=== PATIENT | male | born 1965 | race Caucasian/White ===

== ENCOUNTER 2018-07-09 20:46 | Emergency (ER) | payer OTHER ==
--- NOTE | 2018-07-09 20:48 | ER Report ---
History and Physical Time Seen By MD: 20:47 HPI/ROS CHIEF COMPLAINT: Left flank pain HISTORY OF PRESENT ILLNESS: 53-year-old male type II diabetic with hypertension presents ambulatory to the ER complaining of onset of left flank pain with milan ral episodes of vomiting this morning at 9 AM. Patient does have a distant history of a kidney stone 6 years ago, which required surgery to remove. Patient notes fevers and chills. He has a low-grade fever on arrival 99.6. He notes some urgency. He denies diarrhea. REVIEW OF SYSTEMS: Respiratory: No cough, no dyspnea. Cardiovascular: No chest pain, no palpitations. Gastrointestinal: As above Musculoskeletal: As above Allergies: Coded Allergies: oseltamivir (Verified Allergy, Unknown, "TIA", 07/09/18) acetaminophen (Verified Adverse Reaction, Unknown, "GOT REAL SICK", 07/09/18) aspirin (Verified Adverse Reaction, Unknown, "GOT REAL SICK", 07/09/18) diphenhydramine (Verified Adverse Reaction, Unknown, "GOT REAL SICK", 07/09/18) oxycodone (Verified Adverse Reaction, Unknown, "GOT REAL SICK", 07/09/18) phenyltoloxamine (Verified Adverse Reaction, Unknown, "GOT REAL SICK", 07/09/18) Home Meds Active Scripts Tamsulosin Hcl (FLOMAX) 0.4 Mg Cap.er.24h, 0.4 MG PO QHS for ureteral relaxation, #14 CAP Prov:MACK MCKENZIE DO 07/09/18 Ondansetron 4 Mg Odt (ONDANSETRON 4 MG ODT) 4 Mg Tab.rapdis, 4 MG PO Q6H PRN for NAUSEA/VOMITING, #15 TAB Prov:MACK MCKENZIE DO 07/09/18 Hydrocodone Bit/Acetaminophen (HYDROCODON-ACETAMINOPHEN 5-325) 1 Each Tablet, 1- 2 EACH PO Q4-6H PRN for PAIN, #15 TAKE ONE TABLET BY MOUTH EVERY 4-6 HOURS NEEDED FOR PAIN Prov:MACK MCKENZIE DO 07/09/18 Reported Medications Lisinopril (LISINOPRIL) 20 Mg Tablet, 20 MG PO QDAY, TAB 07/09/18 Reviewed Nurses Notes: Yes Old Medical Records Reviewed: Yes Constitutional Vital Sign - Last 24 Hours 07/09/18 07/09/18 07/09/1819 20:49 20:49 21:00 21:01 Temp 99.6 Pulse 104 85 Resp 14 B/P (MAP) 173/91 173/91 (118) 158/86 (110) Pulse Ox 91 95 O2 Delivery Room Air 07/09/18 07/09/18 07/09/18 07/09/18 21:16 21:30 21:31 22:00 Pulse 91 83 B/P (MAP) 146/91 (109) 91/73 (79) Pulse Ox 91 93 07/09/18 07/09/18 07/09/18 07/09/18 22:01 22:06 22:21 22:30 Pulse 75 82 66 B/P (MAP) 169/93 (118) Pulse Ox 89 90 85 07/09/18 22:36 Pulse 71 Pulse Ox 90 Intake and Output 07/09/18 07/09/18 07/10/18 15:00 23:00 07:00 Intake Total 1000 ml Balance 1000 ml Physical Exam General Appearance: The patient is alert, has no immediate need for airway protection and no current signs of toxicity. Vital signs stable, temp 99.6, pulse ox normal, slightly pale appearing, skin warm and dry Eyes: Pupils equal and round no injection. Respiratory: Chest is non tender, lungs are clear to auscultation. Cardiac: regular rate and rhythm Gastrointestinal: Abdomen is soft and non tender, no masses, bowel sounds normal. +Left CVA tenderness Musculoskeletal: Neck: Neck is supple and non tender. Extremities have full range of motion and are non tender. Skin: No rashes or lesions. DIFFERENTIAL DIAGNOSIS: After history and physical exam differential diagnosis was considered for flank pain including but not limited to musculoskeletal causes, kidney stone, pyelonephritis, shingles, and intra-abdominal causes such as diverticulitis and appendicitis. Medical Decision Making Data Points Result Diagram: 07/09/18211107/09/182111 Laboratory Hematology Test 07/09/18 21:12 Red Blood Count 4.85 M/uL (4.00-5.60) Mean Corpuscular Volume 91.1 fL (80.0-96.0) Mean Corpuscular Hemoglobin 31.4 pg (26.0-33.0) Mean Corpuscular Hemoglobin Concent 34.5 g/dL (32.0-36.0) Red Cell Distribution Width 13.6 % (11.5-14.5) Mean Platelet Volume 8.6 fL (7.2-11.1) Neutrophils (%) (Auto) 78.8 % (39.4-72.5) Lymphocytes (%) (Auto) 12.7 % (17.6-49.6) Monocytes (%) (Auto) 6.3 % (4.1-12.4) Eosinophils (%) (Auto) 0.6 % (0.4-6.7) Basophils (%) (Auto) 1.6 % (0.3-1.4) Nucleated RBC Relative Count (auto) 0.0 /100WBC Neutrophils # (Auto) 8.2 K/uL (2.0-7.4) Lymphocytes # (Auto) 1.3 K/uL (1.3-3.6) Monocytes # (Auto) 0.7 K/uL (0.3-1.0) Eosinophils # (Auto) 0.1 K/uL (0.0-0.5) Basophils # (Auto) 0.2 K/uL (0.0-0.1) Nucleated RBC Absolute Count (auto) 0.00 K/uL Peripheral Blood Smear Yes Y/N Sodium Level 140 mmol/L (137-145) Potassium Level 3.9 mmol/L (3.5-5.0) Chloride Level 107 mmol/L (98-107) Carbon Dioxide Level 24 mmol/L (22-30) Blood Urea Nitrogen 17 mg/dl (9-21) Creatinine 1.30 mg/dl (0.66-1.25) Glomerular Filtration Rate Calc 57.3 Random Glucose 174 mg/dl (75-110) Calcium Level 9.2 mg/dl (8.4-10.2) Total Bilirubin 0.4 mg/dl (0.2-1.3) Aspartate Amino Transf (AST/SGOT) 20 U/L (0-35) Alanine Aminotransferase (ALT/SGPT) 34 U/L (0-56) Alkaline Phosphatase 69 U/L (0-126) Total Protein 7.0 g/dl (6.3-8.2) Albumin 3.8 g/dl (3.5-5.0) Amylase Level 65 U/L (0-110) Lipase 69 U/L (23-300) Chemistry Test 07/09/18 21:12 White Blood Count 10.4 k/uL (4.5-11.0) Red Blood Count 4.85 M/uL (4.00-5.60) Hemoglobin 15.2 g/dL (14.0-18.0) Hematocrit 44.2 % (42.0-52.0) Mean Corpuscular Volume 91.1 fL (80.0-96.0) Mean Corpuscular Hemoglobin 31.4 pg (26.0-33.0) Mean Corpuscular Hemoglobin Concent 34.5 g/dL (32.0-36.0) Red Cell Distribution Width 13.6 % (11.5-14.5) Platelet Count 175 K/uL (150-450) Mean Platelet Volume 8.6 fL (7.2-11.1) Neutrophils (%) (Auto) 78.8 % (39.4-72.5) Lymphocytes (%) (Auto) 12.7 % (17.6-49.6) Monocytes (%) (Auto) 6.3 % (4.1-12.4) Eosinophils (%) (Auto) 0.6 % (0.4-6.7) Basophils (%) (Auto) 1.6 % (0.3-1.4) Nucleated RBC Relative Count (auto) 0.0 /100WBC Neutrophils # (Auto) 8.2 K/uL (2.0-7.4) Lymphocytes # (Auto) 1.3 K/uL (1.3-3.6) Monocytes # (Auto) 0.7 K/uL (0.3-1.0) Eosinophils # (Auto) 0.1 K/uL (0.0-0.5) Basophils # (Auto) 0.2 K/uL (0.0-0.1) Nucleated RBC Absolute Count (auto) 0.00 K/uL Peripheral Blood Smear Yes Y/N Glomerular Filtration Rate Calc 57.3 Calcium Level 9.2 mg/dl (8.4-10.2) Total Bilirubin 0.4 mg/dl (0.2-1.3) Aspartate Amino Transf (AST/SGOT) 20 U/L (0-35) Alanine Aminotransferase (ALT/SGPT) 34 U/L (0-56) Alkaline Phosphatase 69 U/L (0-126) Total Protein 7.0 g/dl (6.3-8.2) Albumin 3.8 g/dl (3.5-5.0) Amylase Level 65 U/L (0-110) Lipase 69 U/L (23-300) EKG/Imaging Imaging Results: CT scan of the abdomen and pelvis without contrast was obtained. The results of the study are CT of the abdomen and pelvis without contrast: Indication: Left flank pain. History of nephrolithiasis. Technique: Helical CT was performed through the abdomen and pelvis without contrast. Multiplanar reconstructions are reviewed. One of the following dose optimization techniques was utilized in the performance of this exam: Automated exposure control; adjustment of the mA and/or kV according to the patient's size; or use of an iterative reconstruction technique. Specific details can be referenced in the facility's radiology CT exam operational policy. Comparison: None available. Lower lung [place]: No parenchymal or pleural abnormality is identified. Liver: Normal in size, shape, and density. Gallbladder/biliary tree: Unremarkable, as visualized. Pancreas: Normal in size, shape, and density. Spleen: Normal in size, shape, and density. Adrenal glands: Within normal limits. Kidneys/urinary bladder: There is an obstructing calculus in the proximal left ureter, measuring 6 x 4 mm in size. There is mild/moderate dilatation of the proximal left ureter and intrarenal collecting structures. The left kidney is edematous with minimal perinephric fluid. There is a large simple cyst in the posterior cortex of the left kidney, measuring up to 6.6 cm in size. No additional calculi are observed in the left ureter or kidney. There is a tiny nonobstructing calculus at the lower pole of the right kidney. The right kidney is otherwise unremarkable. There are no signs of right ureteral calculus or obstruction. The bladder appears homogeneous and unremarkable. Intestinal structures: Unremarkable, as visualized. There are no signs of obstruction or focal inflammatory changes. The appendix appears normal. Pelvis: Unremarkable. Aorta and vascular structures: Within normal limits. Ascites or fluid collections: None seen. Skeletal structures: There is mild/moderate degenerative disc disease and osteophyte formation in the lower thoracic spine and lumbar spine. No acute skeletal deformity is identified. Impression: There is an obstructing calculus in the proximal left ureter, measuring 6 x 4 mm. The study was read by the radiologist. I viewed the images myself on the PACS system. ED Course/Re-evaluation Clinical Indication for ER IV: Hydration, IV Access ED Course Patient was admitted to an examination room. H&P was done. The differential diagnoses was considered. Patient with left flank pain and urinary urgency. He also feels constipated. He does have a history of a kidney stone which required surgical removal 6 years ago. She feels like he has another stone. Peripheral IV was established. Diagnostic studies were sent off. Patient was sent for a CT scan without contrast of the abdomen and pelvis which confirms a 4 x 6 mm stone with left hydronephrosis. There also is a large 6.6 cm simple cyst noted on the left kidney. Patient was treated with IV Zofran, Dilaudid and Toradol. He is feeling much better. Patient will be discharged on Lortab, Zofran and Flomax. He is also going to take Aleve 2 tablets twice daily for pain relief. He is given information to follow up with urology. He is cautioned return to [facility] ER for any worsening. Decision to Disposition Date: Jul 09, 2018 Decision to Disposition Time: 22:29 Depart Departure Latest Vital Signs Vital Signs Date Time Temp Pulse Resp B/P (MAP) Pulse Ox O2 Delivery O2 Flow Rate FiO2 07/09/18 22:36 71 90 07/09/18 22:30 169/93 (118) 07/09/18 20:49 99.6 14 Room Air Impression: Primary Impression: Renal colic on left side Additional Impression: History of kidney stones Condition: Improved Disposition: HOME OR SELF-CARE Referrals: DAILY JURADO MD SUNSHINE VAZQUEZ MD [facility] Tamsulosin Hcl (FLOMAX) 0.4 Mg Cap.er.24h 0.4 MG PO QHS for ureteral relaxation, #14 CAP Prov: MACK MCKENZIE DO 07/09/18 Ondansetron 4 Mg Odt (ONDANSETRON 4 MG ODT) 4 Mg Tab.rapdis 4 MG PO Q6H PRN for NAUSEA/VOMITING, #15 TAB Prov: MACK MCKENZIE DO 07/09/18 Hydrocodone Bit/Acetaminophen (HYDROCODON-ACETAMINOPHEN 5-325) 1 Each Tablet 1-2 EACH PO Q4-6H PRN for PAIN, #15 TAKE ONE TABLET BY MOUTH EVERY 4-6 HOURS NEEDED FOR PAIN Prov: MACK MCKENZIE DO 07/09/18 Patient Instructions: Kidney Stones (ED) Additional Instructions: Take Aleve 2 tablets twice daily with food Return to the ER for any worsening Follow-up with urology in 2-3 days if unimproved Problem Qualifiers MACK MCKENZIE DO Jul 09, 2018 20:48
[2018-07-09] MEDS ORDERED: LISI20TA29 PO (20:54)
[2018-07-09] MEDS ORDERED: NS(*) 0.9% 1000 ML BAG 1,000 ML IV ONE (20:56)
[2018-07-09] MEDS ORDERED: ONDANSETRON 4 MG/2 ML VIAL IVP ONE (21:00)
[2018-07-09] MEDS ORDERED: HYDROMORPHONE HCL 1 MG/ML SYRINGE IVP ONE (21:00)
[2018-07-09 21:19] LABS: PLATELET COUNT, AUTOMATED 175 K/uL (150-450)
[2018-07-09] MEDS ORDERED: KETOROLAC 30 MG/ML VIAL IVP ONE (21:30)
--- NOTE | 2018-07-09 22:22 | RADIOLOGY IMAGING REPORT ---
FACILITY: [facility] PATIENT NAME: Tae Shankar : 1965 MR: [id number] V: [id number] EXAM DATE: ORDERING PHYSICIAN: MACK MCKENZIE TECHNOLOGIST: Location: [facility] [place] Patient: Tae Shankar : 1965 Visit/Account:[id number] Date of Sevice: 07/09/2018 CT of the abdomen and pelvis without contrast: Indication: Left flank pain. History of nephrolithiasis. Technique: Helical CT was performed through the abdomen and pelvis without contrast. Multiplanar rec onstructions are reviewed. One of the following dose optimization techniques was utilized in the performance of this exam: Autom ated exposure control; adjustment of the mA and/or kV according to the patient's size; or use of an i terative reconstruction technique. Specific details can be referenced in the facility's radiology CT exam operational policy. Comparison: None available. Lower lung [place]: No parenchymal or pleural abnormality is identified. Liver: Normal in size, shape, and density. Gallbladder/biliary tree: Unremarkable, as visualized. Pancreas: Normal in size, shape, and density. Spleen: Normal in size, shape, and density. Adrenal glands: Within normal limits. Kidneys/urinary bladder: There is an obstructing calculus in the proximal left ureter, measuring 6 x 4 mm in size. There is mild/moderate dilatation of the proximal left ureter and intrarenal collecting structures. The left kidney is edematous with minimal perinephric fluid. There is a large simple cys t in the posterior cortex of the left kidney, measuring up to 6.6 cm in size. No additional calculi a re observed in the left ureter or kidney. There is a tiny nonobstructing calculus at the lower pole of the right kidney. The right kidney is ot herwise unremarkable. There are no signs of right ureteral calculus or obstruction. The bladder appears homogeneous and unremarkable. Intestinal structures: Unremarkable, as visualized. There are no signs of obstruction or focal inflam matory changes. The appendix appears normal. Pelvis: Unremarkable. Aorta and vascular structures: Within normal limits. Ascites or fluid collections: None seen. Skeletal structures: There is mild/moderate degenerative disc disease and osteophyte formation in the lower thoracic spine and lumbar spine. No acute skeletal deformity is identified. Impression: There is an obstructing calculus in the proximal left ureter, measuring 6 x 4 mm. Report Dictated By: Samuel Manuel MD at 07/09/2018 10:02 PM Report E-Signed By: Samuel Manuel MD at 07/09/2018 10:17 PM [id number]
[2018-07-09 22:30] VITALS: BP 169/93
[2018-07-09] MEDS ORDERED: LOR5/325 PO (22:31)
[2018-07-09] MEDS ORDERED: TAMS0.4C25 PO (22:31)
[2018-07-09] MEDS ORDERED: ONDA4TAB9 PO (22:31)
[2018-07-09] MEDS ORDERED: ONDANSETRON 4 MG ODT TH SL ONE (22:35)
[2018-07-09] MEDS ORDERED: ACET/HYDROC 5/325MG TH ER ONLY 2 TAB/BOTTLE PO ONE ×2 (22:35)
[2018-07-09] MEDS ORDERED: TAMSULOSIN HCL 0.4 MG CAP PO ONE (22:35)
== END 2018-07-09 22:52 | disposition home or self-care (01) ==
LOC: ER 21:06
DX: N20.0 Calculus of kidney (principal); Z87.442 Personal history of urinary calculi
CPT/HCPCS: 74176; 82150; 83690; 85025; 96361; 96374; 96375; 99284; J1170; J1885; J2405; J7030; S0119; 82040; 82247; 82310; 82374; 82435; 82565; 82947; 84075; 84132; 84155; 84295; 84450; 84460; 84520